=== PATIENT | female | born 1965 | race Caucasian/White ===

== ENCOUNTER → 2021-03-26 17:21 | Outpatient (CLI) | payer OTHER, SELFPAY ==
--- NOTE | ~2021-03-26 | MM_ITS ---
EXAMINATION: MM screening nisa BI w yesenia HISTORY: Screening mammogram TECHNIQUE: Craniocaudal and mediolateral oblique 3-D tomosynthesis images were obtained and synthetic 2-D images were generated. CAD analysis was submitted and interpreted. COMPARISON: 10/19/2014, 07/03/2013 bilateral digital screening mammogram examinations BREAST PARENCHYMAL COMPOSITION: The breasts are almost entirely fatty. FINDINGS: There is no evidence of suspicious mass, calcification, or architectural distortion to sugg est malignancy in either breast. There has been no suspicious interval change. IMPRESSION: 1. No mammographic evidence of malignancy. 2. Recommend routine screening mammography in one year. BI-RADS Category 1: Negative Reviewed, dictated and finalized at location A.
== END ==
PROVIDERS: Visit Provider Nurse Practitioner
DX: Z12.31 Encounter for screening mammogram for malignant neoplasm of breast (principal)
CPT/HCPCS: 77063; 77067

== ENCOUNTER 2021-05-12 02:04 | Day surgery (SDC) | payer OTHER, SELFPAY ==
[2021-04-29 14:43] VITALS: BMI 29.8
[2021-05-12 11:41] VITALS: BP 130/88; PULSE 80; RESP 16; TEMP 36.2; O2SAT 96
--- NOTE | 2021-05-12 11:53 | WPDGICN ---
Assessment and Plan Assessment and plan (1) Encounter for screening colonoscopy: Code(s): Z12.11 - Encounter for screening for malignant neoplasm of colon Status: Acute Assessment and Plan: Patient presents for screening colonoscopy. She appears to be at average risk for colon polyps. GI Consult Note Consult date/time: 05/12/21 11:53 HPI: Maranda Alaniz is a 55 year old female Presents for screening colonoscopy. Her current weight appetite bowel movements are normal. She denies abdominal pain. She has had no bleeding. Family history is noncontributory. She presents today for screening exam. Review of Systems Review of Systems: All systems reviewed & are unremarkable except as noted in HPI and below PMFSH Social History Social History Smoking status: Never smoker Living arrangements: alone Spiritual care concerns: No Meds Home Medications and Allergies Home Medications Medication Instructions Recorded Confirmed Type buspirone 15 mg PO BID 04/29/21 05/12/21 History duloxetine 60 mg PO DAILY 04/29/21 05/12/21 History lisinopril 20 mg PO DAILY 04/29/21 05/12/21 History trazodone 50 mg PO HS 04/29/21 05/12/21 History Allergies Allergy/AdvReac Type Severity Reaction Status Date / Time No Known Allergies Allergy Verified 05/12/21 11:39 Vital Signs Vital Signs - 24 hr 05/12/21 11:41 Temperature 97.2 F L Pulse Rate 80 Respiratory Rate 16 Blood Pressure 130/88 Pulse Oximetry 96 Exam Narrative: Physical exam reveals patient be alert. Vital signs stable. HEENT exam is unremarkable. Patient is anicteric. Lungs are clear to auscultation and percussion. Heart is without murmur or extra sounds. Abdominal exam bowel sounds are present soft nontender with no hepatosplenomegaly. Digital external rectal exam is normal.
[2021-05-12] MEDS: LACTATED RINGERS 1,000 ML 150 ML IV CONT (11:56)
--- NOTE | 2021-05-12 12:06 | P.PNAN_ITS ---
Anes - Eval Pre Procedure Procedure: Operation Date: 05/12/21 13:00 Proposed Procedures p Screening Colonoscopy - Dannie El MD Date/Time: 05/12/21 12:06 Pre Op Diagnosis: neoplasm screening Patient Data Age: 55 Gender: F Height: 1.57 m Weight: 72.3 kg Last Vital Signs Temp 36.2 C L 05/12/21 11:41 Pulse 80 05/12/21 11:41 Resp 16 05/12/21 11:41 BP 130/88 05/12/21 11:41 Pulse Ox 96 05/12/21 11:41 Allergies Allergy/AdvReac Type Severity Reaction Status Date / Time No Known Allergies Allergy Verified 05/12/21 11:39 Home Medications Medication Instructions Recorded Confirmed Type buspirone 15 mg PO BID 04/29/21 05/12/21 History duloxetine 60 mg PO DAILY 04/29/21 05/12/21 History lisinopril 20 mg PO DAILY 04/29/21 05/12/21 History trazodone 50 mg PO HS 04/29/21 05/12/21 History Patient hx anesthesia problems: none Family hx anesthesia problems: none Results Review: All pre-operative results and documents have been reviewed as part of the pre-operative evaluation. FORMERLY [facility], [facility] Past Medical History Medical History GERD (gastroesophageal reflux disease) HTN (hypertension) Overweight Surgical History Surgical History (Updated 05/12/21 @ 12:08 by Vidal Kan MD) History of tubal ligation Social History Social History Smoking status: Never smoker Living arrangements: alone Spiritual care concerns: No Exam Day of Procedure 05/12/21 12:06 Patient weight: overweight Heart: regular rate and rhythm Lungs: clear to auscultation Airway: Mallampati scale class II Neurological: alert and oriented
--- NOTE | 2021-05-12 12:09 | WPDANESEFPP ---
Anes - Eval Final PreProcedure Day of Procedure 05/12/21 12:09 Patient weight: overweight Heart: regular rate and rhythm Lungs: clear to auscultation Airway: Mallampati scale class II Neurological: alert and oriented Last oral intake: >/= 8 hours ASA classification: II Emergent: no Anesthetic plan: proceed Anesthesia type and monitoring: general GIVS and standard monitoring Results Review: All pre-operative results and documents have been reviewed as part of the pre-operative evaluation. Informed Consent: The patient's anesthetic plan and its attendant risks and benefits were discussed with the patient/family/POA. Questions were solicited and answers provided to the satisfaction of the patient/family/POA.
[2021-05-12 12:45] VITALS: BP 94/62; PULSE 72; RESP 16; O2SAT 95
[2021-05-12 12:55] VITALS: BP 101/66; PULSE 67; RESP 16; O2SAT 94
[2021-05-12 13:01] VITALS: BP 114/74; PULSE 64; RESP 16; O2SAT 96
== END 2021-05-12 13:13 | disposition home or self-care (01) ==
PROVIDERS: PCP Family Medicine Adolescent Medicine; Visit Provider Internal Medicine Gastroenterology
PROC: 0DJD8ZZ Inspection of Lower Intestinal Tract, Via Natural or Artificial Opening Endoscopic (ICD-10-PCS; CPT 45378; principal; 2021-05-12 13:00)
DX: Z12.11 Encounter for screening for malignant neoplasm of colon (principal); K64.8 Other hemorrhoids; K21.9 Gastro-esophageal reflux disease without esophagitis; I10 Essential (primary) hypertension
CPT/HCPCS: 45378; J2704; J7120

== ENCOUNTER 2022-01-24 10:36 | Emergency (ER) | payer OTHER, SELFPAY ==
[2022-01-24 10:40] VITALS: BP 129/99; PULSE 85; RESP 16; TEMP 36.8; O2SAT 97
--- NOTE | 2022-01-24 11:12 | PC.NURSE ---
Per patient, dog of neighbors that bit her and as far as they know, dog is up-to-date on vaccines. Dog is capable of being quarantined and monitored for symptoms.
--- NOTE | 2022-01-24 11:19 | ED.ANIMALBIT ---
HPI - Animal Bite General Chief Complaint: Animal Bite Stated Complaint: left leg - dog bite Time Seen by Provider: 01/24/22 10:51 History of Present Illness HPI narrative: Patient is a 56-year-old female here for evaluation of a dog bite to her left calf 30 minutes prior to arrival. Patient states that she was on her usual walk, when her neighbor's dog ran up and bit her on the leg. The dog then ran off to its owners. Patient states that the owners confirmed the dog's rabies vaccination is up-to-date. Patient did not fall or have any other injury sustained in the accident. No joint pain, difficulty walking, drainage from wound. Last tetanus is unknown. Related Data Allergies Allergy/AdvReac Type Severity Reaction Status Date / Time No Known Allergies Allergy Verified 01/24/22 10:48 Review of Systems Review of Systems: Gen: Denies fevers or chills Eyes: Denies eye pain or visual change ENT: Denies congestion Respiratory: Denies shortness of breath or cough CV: Denies chest pain or palpitations GI: Denies abdominal pain nausea, emesis or diarrhea denies burning, urgency, frequency or hematuria Musculoskeletal: Denies back pain or muscle pain Neuro: Denies numbness, tingling, weakness or focal weakness Skin: reports dog bite Except as documented, all other systems reviewed and negative PMFSH Past Medical History Medical History Chronic headaches Chronic sinusitis Generalized anxiety disorder GERD (gastroesophageal reflux disease) HTN (hypertension) Major depressive disorder, recurrent, mild Overweight Pure hypercholesterolemia, unspecified Surgical History Surgical History History of tubal ligation Family History Family History Father Hypertension Heart disease Sibling Hypertension Social History Social History Smoking status: Never smoker Second hand tobacco smoke exposure: No Alcohol intake: current Alcohol use details: Rarely Substance use: never Substance use type: does not use Gender identity (if verbalized by the patient): Female Sexual Orientation (if Verbalized by the Patient): Straight or Heterosexual Spiritual care concerns: No Agree to blood products: Yes Exam Narrative: Gen: alert, oriented, NAD Eyes: EOMI, no icterus Pulm: Respirations even and unlabored, symmetric thorax expansion, no audible stridor or visible cyanosis CV: Regular rate per telemetry GI: No distension, no voluntary/involuntary guarding Neuro: AOx4, moves all extremities without apparent difficulty or weakness, follows commands MSK: No bony tenderness to palpation of knee, no pain with ROM, weight bearing Skin: patient has three superficial puncture wounds to left leg, two over left proximal calf and one just proximal to popliteal region. pale ecchymosis surrounding puncture wound Psych: Normal mood/affect, insight/judgement good, adequate fund of knowledge, recent/remote memory intact Course Vital Signs Vital signs: Vital Signs Temperature 98.3 F 01/24/22 10:40 Pulse Rate 85 01/24/22 10:40 Respiratory Rate 16 01/24/22 10:40 Blood Pressure 129/99 H 01/24/22 10:40 Pulse Oximetry 97 01/24/22 10:40 Oxygen Delivery Room Air 01/24/22 10:40 Temperature 98.3 F 01/24/22 10:40 Pulse Rate 85 01/24/22 10:40 Respiratory Rate 16 01/24/22 10:40 Blood Pressure 129/99 H 01/24/22 10:40 Pulse Oximetry 97 01/24/22 10:40 Oxygen Delivery Room Air 01/24/22 10:40 MDM - Animal Bite MDM Narrative Medical decision making narrative: 56-year-old female here for evaluation after a dog bite to her left calf/ popliteal area from her neighbors dog. Dog is vaccinated, no indication to initiate rabies prophylaxis. Do not suspect bony injury based on
[2022-01-24] MEDS: TETANUS,DIPHTHERIA,AC PERTUSSIS ADULT (0.5 ML) BOOSTRIX IM (11:23)
== END 2022-01-24 11:45 | disposition home or self-care (01) ==
LOC: ANHED 11:40
PROVIDERS: Emergency Provider General Practice; PCP Family Medicine Adolescent Medicine
DX: S81.852A Open bite, left lower leg, initial encounter (principal); Z23 Encounter for immunization; I10 Essential (primary) hypertension; E78.00 Pure hypercholesterolemia, unspecified; K21.9 Gastro-esophageal reflux disease without esophagitis; J32.9 Chronic sinusitis, unspecified; E66.3 Overweight; Z68.29 Body mass index [BMI] 29.0-29.9, adult; F41.1 Generalized anxiety disorder; F33.9 Major depressive disorder, recurrent, unspecified; W54.0XXA Bitten by dog, initial encounter
CPT/HCPCS: 90471; 90715; 99283

== ENCOUNTER → 2022-06-11 13:27 | Outpatient (CLI) | payer OTHER, SELFPAY ==
--- NOTE | ~2022-06-11 | MM_ITS ---
EXAMINATION: MM screening nisa BI w yesenia HISTORY: Screening mammogram TECHNIQUE: Craniocaudal and mediolateral oblique 3-D tomosynthesis images were obtained and synthetic 2-D images were generated. CAD analysis was submitted and interpreted. COMPARISON: 03/26/2021, 10/19/2014 BREAST PARENCHYMAL COMPOSITION: The breasts are almost entirely fatty. FINDINGS: No suspicious mass, calcification, or architectural distortion are identified in either kelvin ast to suggest malignancy. There has been no suspicious interval change. IMPRESSION: 1. No mammographic evidence of malignancy. 2. Recommend routine screening mammography in one year. BI-RADS Category 1: Negative Reviewed, dictated and finalized at location A. CTIONAL SURVEY DRAFTER
== END ==
PROVIDERS: PCP Family Medicine Adolescent Medicine; Visit Provider Obstetrics & Gynecology Gynecology
DX: Z12.31 Encounter for screening mammogram for malignant neoplasm of breast (principal)
CPT/HCPCS: 77063; 77067

== ENCOUNTER → 2022-09-09 10:21 | Outpatient (CLI) | payer BC, SELFPAY ==
--- NOTE | ~2022-09-09 | XR_ITS ---
XR sacrum coccyx min 2V DATE: 09/09/2022 11:10 INDICATION: Sacrococcygeal disorder TECHNIQUE: AP, angled AP and lateral views of sacrum and coccyx COMPARISON: None FINDINGS: The pubic symphysis and sacroiliac joints are intact. No sacral or coccygeal fracture or lary ne destruction is detected. Degenerative disc disease at L5-S1. IMPRESSION: Degenerative disc disease at L5-S1 Reviewed, dictated and finalized at location B. OSCIENCE SPECIALIST
== END ==
PROVIDERS: PCP Family Medicine Adolescent Medicine; Visit Provider Physician Assistant
DX: M53.3 Sacrococcygeal disorders, not elsewhere classified (principal); M51.37 Other intervertebral disc degeneration, lumbosacral region
CPT/HCPCS: 72220

== ENCOUNTER → 2023-09-02 08:38 | Outpatient (CLI) | payer BC, SELFPAY ==
--- NOTE | ~2023-09-02 | MMUS_ITS ---
EXAMINATION: MM diagnostic nisa BI w yesenia, US breast LT limited HISTORY: Breast and left axillary pain TECHNIQUE: Additional 3-D tomosynthesis images of the breasts were performed and synthetic 2-D images were generated. CAD analysis was submitted and interpreted. High resolution Limited left breast ultr asound was performed. COMPARISON: Comparison to multiple prior studies sequentially, with oldest reviewed study dated 10/19. BREAST PARENCHYMAL COMPOSITION: Not Dense: Breast are almost entirely fatty. FINDINGS: MAMMOGRAPHIC FINDINGS: There are no suspicious masses, calcifications or architectural distortion in either breast to sugges t malignancy. ULTRASOUND: Limited left breast ultrasound: Normal heterogeneous echotexture without focal solid or cystic mass. IMPRESSION: 1. No evidence for malignancy in either breast. 2. Routine yearly screening mammogram and regular clinical breast examination are recommended. BI-RADS Category 1: Negative Reviewed, dictated and finalized at location A. IMPRESSION: 1. No evidence for malignancy in either breast. 2. Routine yearly screening mammogram and regular clinical breast examination a re recommended. BI-RADS Category 1: Negative
== END ==
PROVIDERS: PCP Nurse Practitioner; Visit Provider Nurse Practitioner
DX: N64.4 Mastodynia (principal)
CPT/HCPCS: 76642; 77062; 77066; G0279